=== PATIENT | female | born 1940 | race Caucasian/White ===

== ENCOUNTER 2019-10-13 10:24 | Emergency (ER) | payer OTHER, MEDICAID ==
[~2019-10-13] VITALS: Ht 157.5 cm; Wt 61.7 kg
[2019-10-13 10:31] VITALS: BP_SYST 144
--- NOTE | 2019-10-13 10:42 | NUR ---
Patient to ER bed 7 to gown for evaluation. Side rails up. Report given to JACKIE To.
--- NOTE | 2019-10-13 10:50 | NUR ---
Patient came in to ER for medical clearance for admission at [place]. Patient was reported to be agitated but has not shown any agitation or aggressiveness. Patient is AOx3.
[2019-10-13] MEDS ORDERED: NACL 0.9% 1,000 ML IV ONE (10:55)
--- NOTE | 2019-10-13 11:15 | NUR ---
ER Dr. Del Castillo at bedside examining patient.
--- NOTE | 2019-10-13 11:21 | NUR ---
Patient transported to radiology via gurney, accompanied by alfreda.
--- NOTE | 2019-10-13 11:27 | NUR ---
Pt taken to radiology in stable condition.
--- NOTE | 2019-10-13 11:28 | NUR ---
Patient moved to Bed 8, upon return from radiology.
[2019-10-13 11:30] LABS: BASOPHILS # (AUTO) 0.1 K/uL (0.0-0.2); EOSINOPHILS # (AUTO) 0.3 K/uL (0.0-0.4); EOSINOPHILS % (AUTO) 4.6 % (0.0-4.0); HEMATOCRIT 39.8 % (36-48); HEMOGLOBIN 13.3 g/dL (12.0-16.0); LYMPHOCYTES # (AUTO) 1.9 K/uL (1.0-5.5); LYMPHOCYTES % (AUTO) 29.8 % (20.5-51.5); MEAN CORPUSCULAR HEMOGLOBIN 28 pg (27-31); MEAN CORPUSCULAR HGB CONC 33 % (32-36); MEAN CORPUSCULAR VOLUME 84 fL (79.0-98.0); MONOCYTES # (AUTO) 0.6 K/uL (0.0-1.0); MONOCYTES % (AUTO) 9.1 % (1.7-9.3); NEUTROPHILS # (AUTO) 3.6 K/uL (1.8-7.7); NEUTROPHILS % (AUTO) 55.5 % (40.0-70.0); PLATELET COUNT (AUTO) 224 K/uL (130-430); RED BLOOD CELL COUNT(AUTO) 4.73 MIL/uL (4.2-6.2); WHITE BLOOD COUNT (AUTO) 6.5 K/uL (4.8-10.8)
--- NOTE | 2019-10-13 11:36 | NUR ---
Spoke with Isidoro via phone for coordinating the medical clearance and concerns whether patient had been cleared by Infectious Disease specialist for TB concerns as noted by Dr. Jeronimo on 02/17/19 consultation note sent by [facility] with patient. He told me to call JACKIE Loyola charge nurse for necessary documentation. Given number [phone].
--- NOTE | 2019-10-13 11:37 | NUR ---
Pt returned from radiology in stable condition.
--- NOTE | 2019-10-13 11:39 | NUR ---
Spoke with Milla and stated need for documentation for clearance of TB from February 2019. She will look in [facility] for documentation and fax it over.
[2019-10-13 11:47] LABS: PROTHROMBIN TIME 9.6 SECS (9.5-12.5)
[2019-10-13 11:50] LABS: ANION GAP 8 (5-15); CALCIUM 8.4 mg/dL (8.4-11.0); CHLORIDE 94 mmol/L (98-107); CREATININE 0.84 mg/dL (0.55-1.30); GLUCOSE 84 mg/dL (70-99); POTASSIUM 3.4 mmol/L (3.5-5.1); SODIUM SERUM 131 mmol/L (136-145); UREA NITROGEN, BLOOD 11 mg/dL (8-21)
[2019-10-13 11:54] LABS: ALANINE AMINOTRANSFERASE 31 U/L (12-78); ALBUMIN 3.7 g/dL (3.4-4.8); AMYLASE 92 U/L (0-100); ASPARTATE AMINOTRANSFERASE 24 U/L (10-37); CHOLESTEROL 185 mg/dL (<200); HDL CHOLESTEROL 79 mg/dL (>55); LDL CHOLESTEROL 98 mg/dL (<100); LIPASE 104 U/L (73-393); TOTAL BILIRUBIN 0.6 mg/dL (0.0-1.0); TRIGLYCERIDES 65 mg/dL (30-150)
[2019-10-13 11:55] LABS: ALCOHOL, BLOOD < 3 mg/dL (<10)
[2019-10-13 12:10] LABS: ACETAMINOPHEN < 1 ug/mL (1-30)
[2019-10-13 12:15] LABS: BILIRUBIN,URINE NEGATIVE (NEGATIVE); BLOOD, URINE NEGATIVE (NEGATIVE); CLARITY/URINE CLEAR (CLEAR); COLOR,URINE YELLOW (YELLOW); GLUCOSE,URINE NEGATIVE (NEGATIVE); KETONES,URINE NEGATIVE (NEGATIVE); LEUKOCYTE ESTERASE ,URINE TRACE (NEGATIVE); NITRITE, URINE NEGATIVE (NEGATIVE); PH,URINE 6.5 (5.0-8.0); PROTEIN URINE NEGATIVE (NEGATIVE); UROBILINOGEN,URINE 0.2 (0.2-1.0)
[2019-10-13 12:28] LABS: BARBITURATE, URINE NEGATIVE (NEG <=200); BENZODIAZEPINE, URINE NEGATIVE (NEG <=150); CANNABINOID, URINE NEGATIVE (NEG <=50); COCAINE, URINE NEGATIVE (NEG <=150); METHAMPHETAMINES SCREEN,URINE NEGATIVE (NEG <=500); OPIATE, URINE NEGATIVE (NEG <=100); PHENCYCLIDINE SCREEN,URINE NEGATIVE (NEG <=25); UR TRICYCLIC ANTIDEPRESSANTS NEGATIVE (NEG <=300); URINE AMPHETAMINE NEGATIVE (NEG <=500); URINE METHADONE NEGATIVE (NEG <=200); URINE OXYCODONE SCREEN NEGATIVE (NEG <=100); URINE PROPOXYPHENE SCREEN NEGATIVE (NEG <=300)
[2019-10-13 12:48] LABS: BACTERIA,URINE None Seen /HPF (None Seen); RBC,URINE 0-3 /HPF (0-3); WBC,URINE 0-3 /HPF (0-3)
[2019-10-13] MEDS ORDERED: DIPHENHYDRAMINE INJ 50 MG/ML VIAL IVP ONE (14:00)
[2019-10-13] MEDS ORDERED: HALOPERIDOL LACTATE 5 MG/ML VIAL IVP ONE (14:00)
[2019-10-13] MEDS ORDERED: LORazepam 2 MG/ML VIAL IVP ONE (14:00)
--- NOTE | 2019-10-13 14:00 | NUR ---
Patient was wondering in the ER screaming that she wants to go home. Patient exited the ER through the ambulance port and was returned back in by Meliza RN. Patient was screaming and threatening to hit RNs. Security was called and MD made aware. Patient continued to be agitated and hitting nurses and staff. Patient was given 1mg ativan, 2 mg haldol, and 25 mg benedryl via IV. During admnistration of medication, patient grabbed IV and removed IV. Patient then received order for 5 mg haldol IM per MD orders. Patient returned to bed 8 and placed on gurney.
[2019-10-13] MEDS ORDERED: LORazepam 2 MG/ML VIAL ONE (14:13)
[2019-10-13] MEDS ORDERED: HALOPERIDOL LACTATE 5 MG/ML VIAL ONE (14:14)
[2019-10-13] MEDS ORDERED: DIPHENHYDRAMINE INJ 50 MG/ML VIAL ONE (14:14)
--- NOTE | 2019-10-13 14:15 | NUR ---
patient laying in gurney resting. Patient is no longer screaming and watching the television. Patient not presenting any signs of acute distress.
--- NOTE | 2019-10-13 14:30 | NUR ---
Patient laying in bed and speaking calmy. I spoke to the patient about removing the IV on her right hand. Patient had pulled IV out earlier when agitated. Patient agreed and was cooperative during the process. No complication or complaint during IV removal. Patient spO2 94%.
[2019-10-13 14:50] VITALS: BP_SYST 144
--- NOTE | 2019-10-13 14:50 | NUR ---
Patient transfered to [place] via ambulance and escorted with spray blender. Report given to EMT. PT was calm and cooperative. IV discontinued and belongings sent with patient. Patient was medically cleared by .
[2019-10-13] MEDS ORDERED: HALOPERIDOL LACTATE 5 MG/ML VIAL IM ONE (15:30)
[2019-10-14 09:11] LABS: VALPROIC ACID 55 ug/mL (50-100)
== END 2019-10-13 14:50 ==
LOC: SED 10:24
DX: Z02.89 Encounter for other administrative examinations (principal); F03.90 Unspecified dementia, unspecified severity, without behavioral disturbance, psychotic disturbance, mood disturbance, and anxiety; F41.9 Anxiety disorder, unspecified; F32.9 Major depressive disorder, single episode, unspecified; F17.210 Nicotine dependence, cigarettes, uncomplicated; I10 Essential (primary) hypertension; J44.9 Chronic obstructive pulmonary disease, unspecified; E11.9 Type 2 diabetes mellitus without complications
CPT/HCPCS: 36415; 70450; 71045; 80053; 80061; 80164; 80307; 81000; 82150; 82550; 83036; 83605; 83690; 84484; 85025; 85610; 85730; 87040; 96372; 99285; G0480; G0481; G0482; J1200; J1630; J2060; J7030

== ENCOUNTER 2019-10-23 04:19 | Emergency (ER) | payer OTHER, MEDICAID ==
[~2019-10-23] VITALS: Ht 157.5 cm; Wt 61.7 kg
[2019-10-23 06:21] VITALS: BP_SYST 132
[2019-10-24] MEDS ORDERED: ALBU2.5V7 INH (00:27)
[2019-10-24] MEDS ORDERED: ACET325T53 PO (00:27)
[2019-10-24] MEDS ORDERED: MONT10TA25 PO (00:27)
[2019-10-24] MEDS ORDERED: FER300L PO (00:27)
[2019-10-24] MEDS ORDERED: SIME125C81 PO (00:27)
[2019-10-24] MEDS ORDERED: INSNLG7030 SUBCUT (00:27)
[2019-10-24] MEDS ORDERED: VALS160T2 PO (00:27)
[2019-10-24] MEDS ORDERED: DIVA250T PO (00:27)
[2019-10-24] MEDS ORDERED: FLUD0.1T PO (00:27)
[2019-10-24] MEDS ORDERED: DULO60CA41 PO (00:27)
[2019-10-24] MEDS ORDERED: CLON0.1T PO (00:27)
[2019-10-24] MEDS ORDERED: MULT-1089 PO (00:27)
[2019-10-24] MEDS ORDERED: MEMA10TA PO (00:27)
[2019-10-24] MEDS ORDERED: DOCU-144 PO (00:27)
[2019-10-24] MEDS ORDERED: FOLI-43 PO (00:27)
[2019-10-24] MEDS ORDERED: BISA5TAB10 PO (00:27)
[2019-10-24] MEDS ORDERED: CRAN500T PO (00:27)
[2019-10-24] MEDS ORDERED: NIFE-2 PO (00:27)
[2019-10-24] MEDS ORDERED: ISOS30TA6 PO (00:27)
[2019-10-24] MEDS ORDERED: MONT10TA22 (00:27)
[2019-10-24] MEDS ORDERED: LISI10TA5 PO (00:27)
[2019-10-24] MEDS ORDERED: MIRT15TA7 PO (00:27)
[2019-10-24] MEDS ORDERED: FLEETMO RC (00:27)
== END 2019-10-23 06:20 | disposition home or self-care (01) ==
LOC: SED 04:19
DX: M54.2 Cervicalgia (principal); J44.9 Chronic obstructive pulmonary disease, unspecified; I10 Essential (primary) hypertension; E11.9 Type 2 diabetes mellitus without complications; F32.9 Major depressive disorder, single episode, unspecified; F41.9 Anxiety disorder, unspecified; F17.290 Nicotine dependence, other tobacco product, uncomplicated; F12.90 Cannabis use, unspecified, uncomplicated; W18.39XA Other fall on same level, initial encounter; Y93.89 Activity, other specified; Y92.89 Other specified places as the place of occurrence of the external cause; Y99.8 Other external cause status
CPT/HCPCS: 93005; 99283

== ENCOUNTER 2019-10-23 19:29 | Inpatient (IN) | payer OTHER, MEDICAID ==
[~2019-10-23] VITALS: Ht 157.5 cm; Wt 60.3 kg
[2019-10-23 19:41] VITALS: BP_SYST 130
[2019-10-23 22:20] LABS: BASOPHILS # (AUTO) 0.1 K/uL (0.0-0.2); BASOPHILS % (AUTO) 0.9 % (0.0-2.0); EOSINOPHILS # (AUTO) 0.1 K/uL (0.0-0.4); EOSINOPHILS % (AUTO) 1.6 % (0.0-4.0); HEMATOCRIT 36.5 % (36-48); HEMOGLOBIN 12.3 g/dL (12.0-16.0); LYMPHOCYTES # (AUTO) 1.6 K/uL (1.0-5.5); LYMPHOCYTES % (AUTO) 19.6 % (20.5-51.5); MEAN CORPUSCULAR HEMOGLOBIN 28 pg (27-31); MEAN CORPUSCULAR HGB CONC 34 % (32-36); MEAN CORPUSCULAR VOLUME 84 fL (79.0-98.0); MONOCYTES # (AUTO) 0.7 K/uL (0.0-1.0); NEUTROPHILS # (AUTO) 5.7 K/uL (1.8-7.7); NEUTROPHILS % (AUTO) 68.9 % (40.0-70.0); PLATELET COUNT (AUTO) 235 K/uL (130-430); RED BLOOD CELL COUNT(AUTO) 4.35 MIL/uL (4.2-6.2); RED CELL DISTRIBUTION WIDTH 15.1 % (9.0-15.0); WHITE BLOOD COUNT (AUTO) 8.3 K/uL (4.8-10.8)
[2019-10-23 22:38] LABS: ANION GAP 10 (5-15); CALCIUM 8.3 mg/dL (8.4-11.0); CHLORIDE 94 mmol/L (98-107); CREATININE 0.84 mg/dL (0.55-1.30); GLUCOSE 116 mg/dL (70-99); POTASSIUM 3.9 mmol/L (3.5-5.1); SODIUM SERUM 128 mmol/L (136-145); UREA NITROGEN, BLOOD 19 mg/dL (8-21)
[2019-10-23 22:39] LABS: PROTHROMBIN TIME 10.1 SECS (9.5-12.5)
[2019-10-23 22:44] LABS: ALANINE AMINOTRANSFERASE 22 U/L (12-78); ALBUMIN 3.3 g/dL (3.4-4.8); ASPARTATE AMINOTRANSFERASE 25 U/L (10-37); TOTAL BILIRUBIN 0.5 mg/dL (0.0-1.0)
[2019-10-23] MEDS ORDERED: DIPH-TET-PERTUS Vaccine 0.5 ML VIAL (ADACEL) I.M. ONE (23:30)
[2019-10-24] MEDS ORDERED: MONT10TA25 PO (00:27)
[2019-10-24] MEDS ORDERED: ACET325T53 PO (00:27)
[2019-10-24] MEDS ORDERED: ALBU2.5V7 INH (00:27)
[2019-10-24] MEDS ORDERED: FOLI-43 PO (00:27)
[2019-10-24] MEDS ORDERED: MONT10TA22 (00:27)
[2019-10-24] MEDS ORDERED: LISI10TA5 PO (00:27)
[2019-10-24] MEDS ORDERED: ISOS30TA6 PO (00:27)
[2019-10-24] MEDS ORDERED: INSNLG7030 SUBCUT (00:27)
[2019-10-24] MEDS ORDERED: MULT-1089 PO (00:27)
[2019-10-24] MEDS ORDERED: NIFE-2 PO (00:27)
[2019-10-24] MEDS ORDERED: CLON0.1T PO (00:27)
[2019-10-24] MEDS ORDERED: SIME125C81 PO (00:27)
[2019-10-24] MEDS ORDERED: VALS160T2 PO (00:27)
[2019-10-24] MEDS ORDERED: FLEETMO RC (00:27)
[2019-10-24] MEDS ORDERED: CRAN500T PO (00:27)
[2019-10-24] MEDS ORDERED: MEMA10TA PO (00:27)
[2019-10-24] MEDS ORDERED: MIRT15TA7 PO (00:27)
[2019-10-24] MEDS ORDERED: DOCU-144 PO (00:27)
[2019-10-24] MEDS ORDERED: FER300L PO (00:27)
[2019-10-24] MEDS ORDERED: DIVA250T PO (00:27)
[2019-10-24] MEDS ORDERED: DULO60CA41 PO (00:27)
[2019-10-24] MEDS ORDERED: FLUD0.1T PO (00:27)
[2019-10-24] MEDS ORDERED: BISA5TAB10 PO (00:27)
[2019-10-24] MEDS ORDERED: ACETAMINOPHEN 325 MG TABLET PO PRN (00:45)
[2019-10-24] MEDS ORDERED: HALOPERIDOL LACTATE 5 MG/ML VIAL IM ONE (02:00)
[2019-10-24 02:59] VITALS: BP_SYST 148
[2019-10-24 03:48] LABS: BILIRUBIN,URINE NEGATIVE (NEGATIVE); BLOOD, URINE NEGATIVE (NEGATIVE); CLARITY/URINE CLEAR (CLEAR); COLOR,URINE YELLOW (YELLOW); GLUCOSE,URINE NEGATIVE (NEGATIVE); KETONES,URINE NEGATIVE (NEGATIVE); LEUKOCYTE ESTERASE ,URINE NEGATIVE (NEGATIVE); NITRITE, URINE NEGATIVE (NEGATIVE); PH,URINE 6.5 (5.0-8.0); PROTEIN URINE NEGATIVE (NEGATIVE); UROBILINOGEN,URINE 0.2 (0.2-1.0)
[2019-10-24] MEDS: NACL 0.9% 1,000 ML IV SCH ×3 (04:35→22:43)
[2019-10-24 07:50] VITALS: BP_SYST 136
[2019-10-24] MEDS: cefTRIAXone 1 GM in D5W 50 ML IV SCH (09:56)
[2019-10-24 10:42] LABS: BASOPHILS % (AUTO) 0.7 % (0.0-2.0); EOSINOPHILS # (AUTO) 0.3 K/uL (0.0-0.4); EOSINOPHILS % (AUTO) 5.8 % (0.0-4.0); HEMATOCRIT 35.7 % (36-48); HEMOGLOBIN 12.1 g/dL (12.0-16.0); LYMPHOCYTES # (AUTO) 1.2 K/uL (1.0-5.5); LYMPHOCYTES % (AUTO) 26.1 % (20.5-51.5); MEAN CORPUSCULAR HEMOGLOBIN 28 pg (27-31); MEAN CORPUSCULAR HGB CONC 34 % (32-36); MEAN CORPUSCULAR VOLUME 84 fL (79.0-98.0); MONOCYTES # (AUTO) 0.3 K/uL (0.0-1.0); MONOCYTES % (AUTO) 5.4 % (1.7-9.3); PLATELET COUNT (AUTO) 222 K/uL (130-430); RED BLOOD CELL COUNT(AUTO) 4.27 MIL/uL (4.2-6.2); RED CELL DISTRIBUTION WIDTH 14.9 % (9.0-15.0); WHITE BLOOD COUNT (AUTO) 4.8 K/uL (4.8-10.8)
[2019-10-24 10:43] LABS: ALANINE AMINOTRANSFERASE 22 U/L (12-78); ALBUMIN 3.1 g/dL (3.4-4.8); ANION GAP 10 (5-15); ASPARTATE AMINOTRANSFERASE 22 U/L (10-37); CALCIUM 7.5 mg/dL (8.4-11.0); CHLORIDE 98 mmol/L (98-107); CREATININE 0.91 mg/dL (0.55-1.30); GLUCOSE 179 mg/dL (70-99); POTASSIUM 3.4 mmol/L (3.5-5.1); SODIUM SERUM 132 mmol/L (136-145); TOTAL BILIRUBIN 0.5 mg/dL (0.0-1.0); UREA NITROGEN, BLOOD 15 mg/dL (8-21)
[2019-10-24 12:01] VITALS: BP_SYST 142
[2019-10-24 16:18] VITALS: BP_SYST 135
[2019-10-25 01:47] VITALS: BP_SYST 133
[2019-10-25] MEDS: NACL 0.9% 1,000 ML IV SCH (06:07)
[2019-10-25 07:50] VITALS: BP_SYST 154
[2019-10-25] MEDS: cefTRIAXone 1 GM in D5W 50 ML IV SCH (08:43)
[2019-10-25 12:00] VITALS: BP_SYST 155
[2019-10-25 12:18] VITALS: BP_SYST 155
[2019-10-25 13:53] VITALS: BP_SYST 155
== END 2019-10-25 14:20 | DRG 641 ==
LOC: SED 19:29 → STU 10-24 00:45 → SMU 10-24 01:30
PROVIDERS: ADMIT Internal Medicine; ATTEND Internal Medicine
DX: E87.1 Hypo-osmolality and hyponatremia (principal); F03.90 Unspecified dementia, unspecified severity, without behavioral disturbance, psychotic disturbance, mood disturbance, and anxiety; J44.9 Chronic obstructive pulmonary disease, unspecified; I25.10 Atherosclerotic heart disease of native coronary artery without angina pectoris; M19.90 Unspecified osteoarthritis, unspecified site; M54.2 Cervicalgia; E11.9 Type 2 diabetes mellitus without complications; I10 Essential (primary) hypertension; W18.30XA Fall on same level, unspecified, initial encounter; Y93.89 Activity, other specified; Y92.89 Other specified places as the place of occurrence of the external cause; Y99.8 Other external cause status; Z79.899 Other long term (current) drug therapy; Z85.528 Personal history of other malignant neoplasm of kidney
CPT/HCPCS: 36415; 70450-TC; 71045; 80053; 81003; 82550-TC; 82962; 83880; 84484; 85025; 85610-TC; 85730-TC; 87040-TC; 87081; 90715; 93005; 99285; J0696; J7030; J7060

== ENCOUNTER 2020-02-04 17:09 | Emergency (ER) | payer OTHER, MEDICAID ==
[~2020-02-04] VITALS: Ht 152.4 cm; Wt 54.4 kg
[~2020-02-04 17:09] MED LIST: ACET325T53 PO; ALBU2.5V7 INH; BISA5TAB10 PO; CLON0.1T PO; CRAN500T PO; DIVA250T PO; DOCU-144 PO; DULO60CA41 PO; FER300L PO; FLEETMO RC; FLUD0.1T PO; FOLI-43 PO; INSNLG7030 SUBCUT; ISOS30TA6 PO; LISI10TA5 PO; MEMA10TA PO; MIRT15TA7 PO; MONT10TA22; MONT10TA25 PO; MULT-1089 PO; NIFE-2 PO; SIME125C81 PO; VALS160T2 PO
[2020-02-04 17:14] VITALS: BP_SYST 164
[2020-02-04 17:41] LABS: BASOPHILS # (AUTO) 0.1 K/uL (0.0-0.2); BASOPHILS % (AUTO) 1.4 % (0.0-2.0); EOSINOPHILS # (AUTO) 0.2 K/uL (0.0-0.4); EOSINOPHILS % (AUTO) 3.3 % (0.0-4.0); HEMATOCRIT 37.9 % (36-48); HEMOGLOBIN 12.7 g/dL (12.0-16.0); LYMPHOCYTES # (AUTO) 1.7 K/uL (1.0-5.5); LYMPHOCYTES % (AUTO) 24.7 % (20.5-51.5); MEAN CORPUSCULAR HEMOGLOBIN 28 pg (27-31); MEAN CORPUSCULAR HGB CONC 33 % (32-36); MEAN CORPUSCULAR VOLUME 83 fL (79.0-98.0); MONOCYTES # (AUTO) 0.5 K/uL (0.0-1.0); MONOCYTES % (AUTO) 7.1 % (1.7-9.3); NEUTROPHILS # (AUTO) 4.4 K/uL (1.8-7.7); NEUTROPHILS % (AUTO) 63.5 % (40.0-70.0); PLATELET COUNT (AUTO) 275 K/uL (130-430); RED BLOOD CELL COUNT(AUTO) 4.58 MIL/uL (4.2-6.2); RED CELL DISTRIBUTION WIDTH 16.1 % (9.0-15.0)
[2020-02-04 17:49] LABS: ANION GAP 8 (5-15); CALCIUM 8.4 mg/dL (8.4-11.0); CHLORIDE 96 mmol/L (98-107); CREATININE 0.91 mg/dL (0.55-1.30); GLUCOSE 106 mg/dL (70-99); POTASSIUM 4.1 mmol/L (3.5-5.1); SODIUM SERUM 130 mmol/L (136-145); UREA NITROGEN, BLOOD 9 mg/dL (8-21)
[2020-02-04 17:51] LABS: BILIRUBIN,URINE NEGATIVE (NEGATIVE); BLOOD, URINE NEGATIVE (NEGATIVE); CLARITY/URINE CLEAR (CLEAR); COLOR,URINE YELLOW (YELLOW); GLUCOSE,URINE NEGATIVE (NEGATIVE); KETONES,URINE NEGATIVE (NEGATIVE); LEUKOCYTE ESTERASE ,URINE NEGATIVE (NEGATIVE); NITRITE, URINE NEGATIVE (NEGATIVE); PH,URINE 6.5 (5.0-8.0); PROTEIN URINE NEGATIVE (NEGATIVE); UROBILINOGEN,URINE 0.2 (0.2-1.0)
[2020-02-04 17:52] LABS: ACETAMINOPHEN 2 ug/mL (1-30); ALANINE AMINOTRANSFERASE 38 U/L (12-78); ALBUMIN 3.4 g/dL (3.4-4.8); ASPARTATE AMINOTRANSFERASE 34 U/L (10-37); TOTAL BILIRUBIN 0.5 mg/dL (0.0-1.0)
[2020-02-04 17:54] LABS: CHOLESTEROL 192 mg/dL (<200); HDL CHOLESTEROL 78 mg/dL (>55); LDL CHOLESTEROL 90 mg/dL (<100); TRIGLYCERIDES 61 mg/dL (30-150)
[2020-02-04 17:58] LABS: ALCOHOL, BLOOD < 3 mg/dL (<10)
[2020-02-04 18:00] LABS: BARBITURATE, URINE NEGATIVE (NEG <=200); BENZODIAZEPINE, URINE NEGATIVE (NEG <=150); CANNABINOID, URINE NEGATIVE (NEG <=50); COCAINE, URINE NEGATIVE (NEG <=150); METHAMPHETAMINES SCREEN,URINE NEGATIVE (NEG <=500); OPIATE, URINE NEGATIVE (NEG <=100); PHENCYCLIDINE SCREEN,URINE NEGATIVE (NEG <=25); UR TRICYCLIC ANTIDEPRESSANTS NEGATIVE (NEG <=300); URINE AMPHETAMINE NEGATIVE (NEG <=500); URINE METHADONE NEGATIVE (NEG <=200); URINE OXYCODONE SCREEN NEGATIVE (NEG <=100); URINE PROPOXYPHENE SCREEN NEGATIVE (NEG <=300)
[2020-02-04 19:02] VITALS: BP_SYST 164
== END 2020-02-04 19:00 ==
LOC: SED 17:09
DX: E87.1 Hypo-osmolality and hyponatremia (principal); R45.6 Violent behavior; J44.9 Chronic obstructive pulmonary disease, unspecified; I10 Essential (primary) hypertension; E11.9 Type 2 diabetes mellitus without complications; Z79.899 Other long term (current) drug therapy
CPT/HCPCS: 36415; 80053; 80061; 80307; 81003; 83036; 85025; 87081; 99285; G0480; G0481; G0482